=== PATIENT | male | born 1980 | race Caucasian/White ===

== ENCOUNTER 2016-06-04 13:32 | Emergency (ER) | payer SELFPAY ==
[~2016-06-04] VITALS: Ht 182.9 cm; Wt 70.0 kg
[2016-06-04 13:34] VITALS: BP 130/89; PULSE 82; RESP 14; TEMP 98.4; O2SAT 98
== END 2016-06-04 15:23 | disposition left against medical advice (07) ==
LOC: NED 13:32
DX: R68.89 Other general symptoms and signs (principal)
CPT/HCPCS: 99281

== ENCOUNTER 2016-12-09 13:16 | Emergency (ER) | payer SELFPAY ==
[~2016-12-09] VITALS: Ht 182.9 cm; Wt 76.1 kg
[2016-12-09 13:33] VITALS: BP 113/62; PULSE 70; RESP 18; TEMP 98.6; O2SAT 99
[2016-12-09] MEDS ORDERED: BACT800T5 PO (14:01)
[2016-12-09] MEDS ORDERED: CEPH-460 PO (14:01)
--- NOTE | 2016-12-09 14:01 | PD ---
HPI Chief Complaint: Skin Problem Time Seen by Provider: 13:50 Travel History International Travel<30 days: No Contact w/Intl Traveler<30days: No Traveled to known affect area: No History of Present Illness HPI Patient's 35 years old. He complains of pain and swelling overlying the ulnar aspect of the dorsal left hand. Erythema over the dorsal aspect of the metacarpophalangeal articulation was first noticed 5 or 6 days ago. He has been expressing the clear drainage which has reduced the overall amount of redness significantly however there is increasing pain in the region of that MCP joint specifically. Patient denies fever. He denies IV drug abuse. The pain is worse with palpation. Onset gradual. PFSH Past Medical History Medical History: Denies Significant Hx Hx Anticoagulant Therapy: No Autoimmune Disease: No Cancer: No Cardiovascular Problems: No Chemotherapy: No Cerebrovascular Accident: No Diabetes: No Diminished Hearing: No Endocrine: No Gastrointestinal Disorders: No Genitourinary: No Immune Disorder: No Implanted Vascular Access Dvce: No Musculoskeletal: No Neurologic: No Psychiatric: No Reproductive: No Respiratory: No Immunizations Current: Yes Past Surgical History Hysterectomy: No Other Surgery: No Social History Alcohol Use: No Tobacco Use: No Substance Use: No Allergies-Medications (Allergen,Severity, Reaction): Coded Allergies: No Known Allergies (Verified , 12/09/16) Reported Meds & Prescriptions Reported Meds & Active Scripts Active Keflex (Cephalexin) 500 Mg Capsule 500 Mg PO Q8H 10 Days Bactrim DS (Sulfamethoxazole-Trimethoprim) 800-160 Mg Tab 1 Tab PO BID Review of Systems General / Constitutional: No: Fever Skin: Positive Lesions Physical Exam Narrative GENERAL: 35-year-old male well-nourished well-developed no acute distress SKIN: Warm and dry. There is erythema overlying the left metacarpophalangeal articulation of the dorsal aspect. There is tenderness to palpation in that area. There is no fluctuance. There is no flexion of the affected digit, the left fifth finger, generalized swelling or tenderness with passive range of motion. HEAD: Normocephalic. EYES: No scleral icterus. No injection or drainage. NECK: Supple, trachea midline. No JVD or lymphadenopathy. CARDIOVASCULAR: Regular rate and rhythm without murmurs, gallops, or rubs. MUSCULOSKELETAL: No cyanosis, or edema. Data Data Last Documented VS Vital Signs Date Time Temp Pulse Resp B/P Pulse Ox O2 Delivery O2 Flow Rate FiO2 12/09/16 13:33 98.6 70 18 113/62 99 Vital signs reviewed MDM Medical Decision Making Medical Screen Exam Complete: Yes Emergency Medical Condition: Yes Differential Diagnosis Flexor tenosynovitis, septic arthritis, cellulitis, necrotizing fasciitis Narrative Course Patient has cellulitis of the left dorsal hand predominantly over the region of the metacarpophalangeal articulation. There is no abscess or suggestion of intra-articular involvement at this point. Return precautions discussed. Diagnosis Primary Impression: Cellulitis and abscess of finger, unspecified Referrals: Primary Care Physician 2 days Additional Instructions: You have a choice when it comes to health care, and we are glad that you chose [facility]. Hopefully, we have met your expectations on today's visit. You are welcome to return to [facility] at any time, as we are committed to meeting the health care needs of our community. Med/Other Pt SpecificInfo: Prescription(s) given Scripts Cephalexin (Keflex)500 Mg [id number] Mg PO Q8H 10 Days Ref 0 Prov:Abraham Kelley MD 12/09/16 Sulfamethoxazole-Trimethoprim (Bactrim DS)800-160 Mg Tab1 Tab PO BID #20 TAB Ref 0 Prov:Abraham Kelley MD 12/09/16 Disposition: 01 DISCHARGE HOME Condition: Stable Abraham Kelley MD Dec 09, 2016 14:01
== END 2016-12-09 14:25 | disposition home or self-care (01) ==
LOC: PHEFT 13:16
DX: L03.114 Cellulitis of left upper limb (principal)
CPT/HCPCS: 99284